=== PATIENT | female | born 1970 | race Caucasian/White ===

== ENCOUNTER 2020-12-18 21:34 | Emergency (ER) | payer OTHER ==
[2020-12-18 22:03] VITALS: BP 130/80; PULSE 128; TEMP 99.1; BMI 24.1
[2020-12-18] MEDS ORDERED: DIPHTH,PERTUSS(ACELL),TET 0.5 ML DISP.SYRIN IM ONE ×2 (22:14→22:18)
== END 2020-12-18 23:01 | disposition home or self-care (01) ==
LOC: FER 21:34
PROC: 3E0234Z Introduction of Serum, Toxoid and Vaccine into Muscle, Percutaneous Approach (ICD-10-PCS; principal; 2020-12-18)
DX: F10.920 Alcohol use, unspecified with intoxication, uncomplicated (principal); S01.81XA Laceration without foreign body of other part of head, initial encounter; W19.XXXA Unspecified fall, initial encounter
CPT/HCPCS: 70450-TC; 90715; 99285-25